=== PATIENT | female | born 1975 ===

== ENCOUNTER 2021-02-18 22:46 | Emergency (ER) | payer OTHER ==
[~2021-02-18] VITALS: Ht 167.6 cm; Wt 80.6 kg
[2021-02-19 00:28] LABS: BASOPHILS % (AUTO) 1 % (0-1); EOSINOPHILS % (AUTO) 4 % (1-7); LYMPHOCYTES % (AUTO) 32 % (22-44); MEAN CORPUSCULAR HEMOGLOBIN 29.4 pg (27.0-34.8); MEAN CORPUSCULAR HGB CONC 33.5 g/dL (32.4-35.8); MEAN PLATELET VOLUME 8.2 fL (7.4-10.4); MONOCYTES % (AUTO) 9 % (2-9); NEUTROPHILS % (AUTO) 54 % (42-75); PLATELET COUNT 304 x10^3/uL (130-400); RED BLOOD COUNT 4.73 x10^6/uL (3.82-5.3)
[2021-02-19 00:49] LABS: ALBUMIN 3.4 g/dL (3.4-5.0); ANION GAP 4 mmol/L (5-15); CALCIUM 8.5 mg/dL (8.5-10.1); CHLORIDE 105 mmol/L (98-107)
[2021-02-19 00:54] LABS: ALANINE AMINOTRANSFERASE 21 U/L (12-78); ALKALINE PHOSPHATASE 100 U/L (45-117); BILIRUBIN,TOTAL 0.5 mg/dL (0.2-1.0); TOTAL PROTEIN 7.8 g/dL (6.4-8.2)
[2021-02-19 00:59] VITALS: BP 108/71
--- NOTE | 2021-02-19 01:00 | NUR ---
FIRST CONTACT: PATIENT STATES SHE HAD DIARRHEA 1WEEK AGO THAT WAS BLACK IN COLOR. VOMITED A COUPLE DAYS AGO AND SINCE HAS HAD A DECREASE IN APPITITE. HISTORY OF GALLBLADER REMOVAL
[2021-02-19 01:15] LABS: MICROSCOPIC INDICATED
--- NOTE | 2021-02-19 01:27 | NUR ---
PATIENT TO CT
[2021-02-19] MEDS ORDERED: SODIUM CHLORIDE 0.9% 1,000ML IVBOLUS ONE (01:30)
[2021-02-19] MEDS ORDERED: SODIUM CHLORIDE FLUSH 10ML SYR IVF ONE (01:30)
--- NOTE | 2021-02-19 01:42 | NUR ---
PATIENT RETURNED FROM CT
[2021-02-19] MEDS ORDERED: OMNIPAQUE 350 MG/ML, 100ML BOTTLE ONE (01:43)
--- NOTE | 2021-02-19 02:51 | NUR ---
ASSISTED PATIENT TO RESTROOM AND BACK TO BED
--- NOTE | 2021-02-19 03:09 | NUR ---
Patient given discharge instructions and they have confirmed that they understand the instructions. Patient ambulatory with steady gait. NAD, all questions answered appropriately, denies additional needs at this time. No personal belongings left in room after discharge.
== END 2021-02-19 03:21 | disposition home or self-care (01) ==
LOC: ED 02-19 03:15
DX: K52.9 Noninfective gastroenteritis and colitis, unspecified (principal); R11.2 Nausea with vomiting, unspecified; R10.9 Unspecified abdominal pain
CPT/HCPCS: 36415; 74177; 80053; 81001; 84703; 85025; 87086; 96360; 99285; J7030; Q9967